=== PATIENT | female | born 1985 | race Caucasian/White ===

== ENCOUNTER 2021-03-24 13:40 | Emergency (ER) | payer SELFPAY ==
[~2021-03-24] VITALS: Ht 167.6 cm; Wt 91.0 kg
[2021-03-24 18:28] VITALS: BP 131/86
== END 2021-03-24 18:45 | disposition home or self-care (01) ==
LOC: ER 13:40
DX: F10.129 Alcohol abuse with intoxication, unspecified (principal); Y90.0 Blood alcohol level of less than 20 mg/100 ml; F41.9 Anxiety disorder, unspecified; F32.9 Major depressive disorder, single episode, unspecified
CPT/HCPCS: 99283